=== PATIENT | male | born 1940 | race Caucasian/White ===

== ENCOUNTER 2018-06-22 15:05 | Inpatient (IN) | payer MEDICARE ==
[~2018-06-22] VITALS: Ht 177.8 cm; Wt 59.1 kg
[2018-06-22] MEDS ORDERED: IOVERSOL 350 MG/ML 100 ML VIAL ONE (15:13)
[2018-06-22] MEDS ORDERED: SODIUM CHLORIDE 0.9% 100 ML ONE (15:13)
[2018-06-22 15:33] LABS: BASOPHILS % (AUTO) 0.5 % (0.0-2.0); EOSINOPHILS % (AUTO) 1.4 % (1.0-6.0); HEMATOCRIT 41.3 % (41-53); LYMPHOCYTES # (AUTO) 0.8 K/uL (1.0-4.8); LYMPHOCYTES % (AUTO) 8.6 % (22.0-44.0); MEAN CORPUSCULAR HEMOGLOBIN 30.9 pg (26.0-34.0); MEAN CORPUSCULAR VOLUME 91 fL (80-100); MONOCYTES # (AUTO) 0.9 K/uL (0.1-1.0); MONOCYTES % (AUTO) 9.6 % (2.0-9.0); NEUTROPHILS # (AUTO) 7.1 K/uL (1.8-7.7); NEUTROPHILS % (AUTO) 79.9 % (40.0-70.0); PLATELET COUNT (AUTO) 171 K/uL (150-450); RED BLOOD CELL COUNT(AUTO) 4.55 MIL/uL (4.50-5.90); RED CELL DISTRIBUTION WIDTH 12.9 % (11.5-14.5)
[2018-06-22 15:42] LABS: ANION GAP 7 mmol/L (8-16); CALCIUM, TOTAL 8.8 mg/dL (8.8-10.5); CARBON DIOXIDE 28 mmol/L (22-29); CHLORIDE 106 mmol/L (98-107); CREATININE 0.77 mg/dL (0.60-1.30); GLUCOSE,RANDOM 98 mg/dL (70-110); SODIUM SERUM 141 mmol/L (136-145); UREA NITROGEN, BLOOD 15 mg/dL (7-18)
[2018-06-22 15:43] LABS: GLOMERULAR FILTR. RATE CALC > 60 mL/min (>60)
[2018-06-22 15:45] LABS: PROTHROMBIN TIME 10.5 SEC (9.4-11.6)
[2018-06-22] MEDS ORDERED: ASPIRIN 325 MG TABLET PO ONE (15:45)
[2018-06-22 15:48] LABS: ALANINE AMINOTRANSFERASE 7 U/L (12-78); ALBUMIN 2.7 g/dL (3.4-5.0); ALKALINE PHOSPHATASE 107 U/L (46-116); ASPARTATE AMINOTRANSFERASE 13 U/L (15-37); BILIRUBIN,TOTAL 0.5 mg/dL (0.1-1.0); CREATINE KINASE, TOTAL 53 U/L (39-308); TOTAL PROTEIN, SERUM 6.7 g/dL (6.4-8.2)
[2018-06-22] MEDS ORDERED: ASPIRIN 300 MG RECTAL SUPPOSITORY PR ONE (16:00)
[2018-06-22] MEDS ORDERED: LORazepam 2 MG/ML VIAL IVP ONE (16:30)
[2018-06-22] MEDS ORDERED: ONDANSETRON HCL 4 MG/2 ML VIAL IVP PRN ×2 (17:00→17:15)
[2018-06-22] MEDS ORDERED: 0.9% SODIUM CHLORIDE 10 ML SYRINGE IVP PRN (17:00)
[2018-06-22] MEDS ORDERED: ACETAMINOPHEN 325 MG TABLET PO PRN ×2 (17:00→17:15)
[2018-06-22] MEDS ORDERED: MORPHINE SULFATE 2 MG/ML SYRINGE IVP PRN (17:15)
[2018-06-22] MEDS ORDERED: MAGNESIUM HYDROXIDE SUSPENSION 30 ML UDCUP PO PRN (17:15)
[2018-06-22] MEDS ORDERED: ZOLPIDEM TARTRATE 5 MG TABLET PO PRN (17:15)
[2018-06-22] MEDS ORDERED: HYDROCODONE/ACETAMINOPHEN 5-325 MG TABLET PO PRN (17:15)
[2018-06-22] MEDS ORDERED: ASPIRIN 81 MG CHEWABLE TABLET PO ONE (17:15)
[2018-06-22] MEDS ORDERED: BISACODYL 10 MG RECTAL RECTAL SUPPOSITORY PR PRN (17:15)
[2018-06-22] MEDS ORDERED: SODIUM CHLORIDE 0.9% 500 ML IV ONE (17:15)
[2018-06-22] MEDS ORDERED: ESOM20CA60 PO (17:23)
[2018-06-22 18:06] LABS: APPEARANCE,URINE TURBID (CLEAR); GLUCOSE, URINE (UA) NEGATIVE (NEGATIVE); KETONES,URINE 15 mg/dL (NEGATIVE); LEUKOCYTE ESTERASE ,URINE MODERATE (NEGATIVE); NITRATE,URINE POSITIVE (NEGATIVE); OCCULT BLOOD,URINE LARGE (NEGATIVE); PROTEIN,URINE SEE CONFIRM (NEGATIVE)
[2018-06-22 18:14] LABS: BILIRUBIN,URINE PRELIM. POSITIVE (NEGATIVE)
[2018-06-22 18:16] LABS: SULFOSALICYLIC ACID,URINE 4+ (Negative)
[2018-06-22 18:17] LABS: RBC,URINE Full Field /HPF (0-2)
[2018-06-22 18:18] LABS: BACTERIA,URINE Moderate /HPF (None Seen); SQUAMOUS EPITHELIAL CELL,UR Few /LPF (None Seen)
[2018-06-22] MEDS ORDERED: CefTRIAXone SODIUM 1 GM in DEXTROSE 5%-WATER 10 ML IV ONE (18:45)
[2018-06-22 20:45] VITALS: BP 138/70
[2018-06-22] MEDS: ATORVASTATIN CALCIUM 20 MG TABLET PO SCH (21:00)
[2018-06-22] MEDS: DOCUSATE SODIUM 100 MG CAPSULE PO SCH (21:00)
[2018-06-23] VITALS: BP 91/55
[2018-06-23] MEDS ORDERED: HEPARIN SODIUM,PORCINE 5,000 UNITS/ML VIAL SQ SCH
[2018-06-23 03:31] LABS: AMPHET/METH SCREEN,URINE NEGATIVE (NEGATIVE); BARBITURATE SCREEN, URINE NEGATIVE (NEGATIVE); BENZODIAZEPINES SCREEN,URINE POSITIVE (NEGATIVE); CANNABINOID SCREEN,URINE POSITIVE (NEGATIVE); COCAINE SCREEN,URINE NEGATIVE (NEGATIVE); METHADONE SCREEN, URINE NEGATIVE (NEGATIVE); OPIATE SCREEN,URINE NEGATIVE (NEGATIVE)
[2018-06-23 03:44] LABS: PHENCYCLIDINE SCREEN,URINE NEGATIVE (NEGATIVE)
[2018-06-23 04:00] VITALS: BP 94/46
[2018-06-23 05:32] LABS: CHOL/HDL RATIO 3.9 (4.2-7.3); CHOLESTEROL 154 mg/dL (131-200); HDL CHOLESTEROL 40 mg/dL (40-60); LDL CHOL (CALC.) 98 mg/dL (0-130); THYROID STIMULATING HORMONE 1.57 uIU/mL (0.36-3.74); TRIGLYCERIDES 78 mg/dL (15-150)
[2018-06-23 07:56] LABS: BASOPHILS % (AUTO) 0.2 % (0.0-2.0); EOSINOPHILS % (AUTO) 0.8 % (1.0-6.0); HEMATOCRIT 40.7 % (41-53); HEMOGLOBIN 13.3 g/dL (13.5-17.5); LYMPHOCYTES # (AUTO) 0.7 K/uL (1.0-4.8); LYMPHOCYTES % (AUTO) 8.2 % (22.0-44.0); MEAN CORPUSCULAR HEMOGLOBIN 30.6 pg (26.0-34.0); MEAN CORPUSCULAR HGB CONC 32.8 G/dL (31.0-37.0); MEAN CORPUSCULAR VOLUME 93 fL (80-100); MONOCYTES # (AUTO) 0.8 K/uL (0.1-1.0); MONOCYTES % (AUTO) 9.6 % (2.0-9.0); NEUTROPHILS # (AUTO) 6.5 K/uL (1.8-7.7); NEUTROPHILS % (AUTO) 81.2 % (40.0-70.0); PLATELET COUNT (AUTO) 175 K/uL (150-450); RED BLOOD CELL COUNT(AUTO) 4.37 MIL/uL (4.50-5.90); RED CELL DISTRIBUTION WIDTH 12.8 % (11.5-14.5)
[2018-06-23 08:00] VITALS: BP 112/59
[2018-06-23 08:04] LABS: ANION GAP 14 mmol/L (8-16); CALCIUM, TOTAL 8.7 mg/dL (8.8-10.5); CARBON DIOXIDE 23 mmol/L (22-29); CHLORIDE 106 mmol/L (98-107); CREATININE 0.76 mg/dL (0.60-1.30); GLOMERULAR FILTR. RATE CALC > 60 mL/min (>60); GLUCOSE,RANDOM 78 mg/dL (70-110); POTASSIUM 3.9 mmol/L (3.5-5.1); SODIUM SERUM 143 mmol/L (136-145); UREA NITROGEN, BLOOD 12 mg/dL (7-18)
[2018-06-23] MEDS: PANTOPRAZOLE SODIUM 40 MG DR TABLET PO SCH (08:45)
[2018-06-23] MEDS: DOCUSATE SODIUM 100 MG CAPSULE PO SCH ×2 (08:46→20:17)
[2018-06-23 10:22] LABS: FOLATE SERUM 6.7 ng/mL (5.4-)
[2018-06-23 12:00] VITALS: BP 108/64
[2018-06-23 16:00] VITALS: BP 135/64
[2018-06-23] MEDS: CefTRIAXone SODIUM 1 GM in DEXTROSE 5%-WATER 10 ML IV SCH (18:29)
[2018-06-23 20:00] VITALS: BP 112/68
[2018-06-23] MEDS: ATORVASTATIN CALCIUM 20 MG TABLET PO SCH (20:17)
[2018-06-24] VITALS (7 sets, daily range): BP systolic 99–135; BP diastolic 54–78
[2018-06-24 04:44] LABS: BASOPHILS % (AUTO) 0.5 % (0.0-2.0); EOSINOPHILS % (AUTO) 2.9 % (1.0-6.0); HEMATOCRIT 38.5 % (41-53); LYMPHOCYTES % (AUTO) 12.5 % (22.0-44.0); MEAN CORPUSCULAR HEMOGLOBIN 30.7 pg (26.0-34.0); MEAN CORPUSCULAR HGB CONC 33.7 G/dL (31.0-37.0); MEAN CORPUSCULAR VOLUME 91 fL (80-100); MONOCYTES % (AUTO) 12.6 % (2.0-9.0); NEUTROPHILS # (AUTO) 5.5 K/uL (1.8-7.7); NEUTROPHILS % (AUTO) 71.5 % (40.0-70.0); PLATELET COUNT (AUTO) 164 K/uL (150-450); RED BLOOD CELL COUNT(AUTO) 4.22 MIL/uL (4.50-5.90); RED CELL DISTRIBUTION WIDTH 12.8 % (11.5-14.5)
[2018-06-24 04:53] LABS: ANION GAP 3 mmol/L (8-16); CALCIUM, TOTAL 8.4 mg/dL (8.8-10.5); CARBON DIOXIDE 33 mmol/L (22-29); CHLORIDE 105 mmol/L (98-107); CREATININE 0.72 mg/dL (0.60-1.30); GLOMERULAR FILTR. RATE CALC > 60 mL/min (>60); GLUCOSE,RANDOM 98 mg/dL (70-110); POTASSIUM 3.7 mmol/L (3.5-5.1); SODIUM SERUM 141 mmol/L (136-145); UREA NITROGEN, BLOOD 16 mg/dL (7-18)
[2018-06-24] MEDS: PANTOPRAZOLE SODIUM 40 MG DR TABLET PO SCH (08:13)
[2018-06-24] MEDS: DOCUSATE SODIUM 100 MG CAPSULE PO SCH ×2 (08:13→20:45)
[2018-06-24] MEDS: CefTRIAXone SODIUM 1 GM in DEXTROSE 5%-WATER 10 ML IV SCH (17:31)
[2018-06-24] MEDS: ATORVASTATIN CALCIUM 20 MG TABLET PO SCH (20:45)
[2018-06-25 00:13] VITALS: BP 104/51
[2018-06-25 03:53] VITALS: BP 113/71
[2018-06-25 07:57] VITALS: BP 126/72
[2018-06-25] MEDS: DOCUSATE SODIUM 100 MG CAPSULE PO SCH ×2 (09:50→20:37)
[2018-06-25] MEDS: PANTOPRAZOLE SODIUM 40 MG DR TABLET PO SCH (09:50)
[2018-06-25 11:56] VITALS: BP 124/87
[2018-06-25 15:19] VITALS: BP 120/68
[2018-06-25] MEDS: CefTRIAXone SODIUM 1 GM in DEXTROSE 5%-WATER 10 ML IV SCH (18:05)
[2018-06-25 19:43] VITALS: BP 129/65
[2018-06-25] MEDS: ATORVASTATIN CALCIUM 20 MG TABLET PO SCH (20:37)
[2018-06-26 00:09] VITALS: BP 115/63
[2018-06-26 04:50] VITALS: BP 124/72
[2018-06-26 07:15] VITALS: BP 121/78
[2018-06-26] MEDS: PANTOPRAZOLE SODIUM 40 MG DR TABLET PO SCH (08:54)
[2018-06-26] MEDS: DOCUSATE SODIUM 100 MG CAPSULE PO SCH ×2 (08:54→20:18)
[2018-06-26 11:39] VITALS: BP 129/75
[2018-06-26 15:28] VITALS: BP 123/76
[2018-06-26] MEDS: CefTRIAXone SODIUM 1 GM in DEXTROSE 5%-WATER 10 ML IV SCH (17:50)
[2018-06-26 20:03] VITALS: BP 108/71
[2018-06-26] MEDS: ATORVASTATIN CALCIUM 20 MG TABLET PO SCH (20:19)
[2018-06-27 00:06] VITALS: BP 111/64
[2018-06-27 05:34] VITALS: BP 117/78
[2018-06-27 07:27] VITALS: BP 121/73
[2018-06-27] MEDS ORDERED: SODIUM CHLORIDE 0.9% 500 ML IV ONE (07:48)
[2018-06-27] MEDS: PANTOPRAZOLE SODIUM 40 MG DR TABLET PO SCH (08:24)
[2018-06-27] MEDS: DOCUSATE SODIUM 100 MG CAPSULE PO SCH (08:31)
[2018-06-27] MEDS ORDERED: SODIUM CHLORIDE 0.9% 1,000 ML IV ONE (09:00)
[2018-06-27] MEDS ORDERED: ESCITALOPRAM OXALATE 10 MG TABLET PO SCH (09:00)
[2018-06-27 11:33] VITALS: BP 121/66
[2018-06-27] MEDS ORDERED: CIPR-278 PO (12:37)
[2018-06-27] MEDS ORDERED: ESCI10TA PO (12:38)
== END 2018-06-27 15:30 | disposition home or self-care (01) | DRG 91 ==
LOC: EMS 15:06 → ICU 18:49 → 5S 06-24 11:26
PROVIDERS: ADMIT Internal Medicine; ATTEND Internal Medicine
DX: G92 Toxic encephalopathy (principal); E43 Unspecified severe protein-calorie malnutrition; N39.0 Urinary tract infection, site not specified; Z68.1 Body mass index [BMI] 19.9 or less, adult; F12.90 Cannabis use, unspecified, uncomplicated; F32.9 Major depressive disorder, single episode, unspecified; T42.72XA Poisoning by unspecified antiepileptic and sedative-hypnotic drugs, intentional self-harm, initial encounter; Y92.89 Other specified places as the place of occurrence of the external cause; Z87.11 Personal history of peptic ulcer disease; Z85.118 Personal history of other malignant neoplasm of bronchus and lung
CPT/HCPCS: 51702; 70496; 72170; 80307; 82607; 82746; 84443; 87081; 87086; 92610; 93005; 96361; 96374; 97162; 99291; J0696; J7030; J7040; J7050; J7060

== ENCOUNTER 2019-01-04 13:39 | Inpatient (IN) | payer MEDICARE, MEDICAID ==
[~2019-01-04] VITALS: Ht 177.8 cm; Wt 58.8 kg
[~2019-01-04 13:39] MED LIST: CIPR-278 PO; ESCI10TA PO; ESOM20CA60 PO
[2019-01-04] MEDS ORDERED: AUD NEB (14:09)
[2019-01-04] MEDS ORDERED: AZITHROMYCIN 500 MG/NS 250 ML IV ONE (16:00)
[2019-01-04] MEDS ORDERED: CefTRIAXone 1 GM/DEXTROSE 50 ML IV ONE (16:00)
[2019-01-04 16:13] LABS: BASOPHILS % (AUTO) 0.5 % (0.0-2.0); EOSINOPHILS % (AUTO) 1.2 % (1.0-6.0); HEMATOCRIT 43.5 % (41-53); HEMOGLOBIN 14.3 g/dL (13.5-17.5); LYMPHOCYTES # (AUTO) 0.8 K/uL (1.0-4.8); LYMPHOCYTES % (AUTO) 9.5 % (22.0-44.0); MEAN CORPUSCULAR HEMOGLOBIN 30.8 pg (26.0-34.0); MEAN CORPUSCULAR HGB CONC 32.9 G/dL (31.0-37.0); MEAN CORPUSCULAR VOLUME 94 fL (80-100); MONOCYTES # (AUTO) 0.7 K/uL (0.1-1.0); NEUTROPHILS # (AUTO) 6.6 K/uL (1.8-7.7); NEUTROPHILS % (AUTO) 80.8 % (40.0-70.0); PLATELET COUNT (AUTO) 220 K/uL (150-450); RED BLOOD CELL COUNT(AUTO) 4.66 MIL/uL (4.50-5.90); RED CELL DISTRIBUTION WIDTH 13.2 % (11.5-14.5)
[2019-01-04 16:19] LABS: ANION GAP 6 mmol/L (8-16); CALCIUM, TOTAL 9.5 mg/dL (8.8-10.5); CARBON DIOXIDE 32 mmol/L (22-29); CHLORIDE 102 mmol/L (98-107); CREATININE 0.78 mg/dL (0.60-1.30); GLUCOSE,RANDOM 88 mg/dL (70-110); POTASSIUM 5.3 mmol/L (3.5-5.1); SODIUM SERUM 140 mmol/L (136-145); UREA NITROGEN, BLOOD 17 mg/dL (7-18)
[2019-01-04 16:20] LABS: GLOMERULAR FILTR. RATE CALC > 60 mL/min (>60)
[2019-01-04 16:27] LABS: ALANINE AMINOTRANSFERASE 15 U/L (12-78); ALBUMIN 3.6 g/dL (3.4-5.0); ALKALINE PHOSPHATASE 114 U/L (46-116); ASPARTATE AMINOTRANSFERASE 25 U/L (15-37); BILIRUBIN,TOTAL 0.4 mg/dL (0.1-1.0); TOTAL PROTEIN, SERUM 7.3 g/dL (6.4-8.2)
[2019-01-04 16:37] LABS: APPEARANCE,URINE CLEAR (CLEAR); BILIRUBIN,URINE NEGATIVE (NEGATIVE); GLUCOSE, URINE (UA) NEGATIVE (NEGATIVE); KETONES,URINE TRACE mg/dL (NEGATIVE); LEUKOCYTE ESTERASE ,URINE NEGATIVE (NEGATIVE); NITRATE,URINE NEGATIVE (NEGATIVE); OCCULT BLOOD,URINE NEGATIVE (NEGATIVE); PH,URINE 5.5 (5.0-8.0); PROTEIN,URINE NEGATIVE (NEGATIVE); UROBILINOGEN,URINE 0.2 mg/dL (<=1.0)
[2019-01-04 16:42] LABS: B-TYPE NATRIURETIC PEPTIDE 45 pg/mL (0-100)
[2019-01-04] MEDS ORDERED: SODIUM CHLORIDE 0.9% 100 ML ONE (18:30)
[2019-01-04] MEDS ORDERED: ACETAMINOPHEN 325 MG TABLET PO PRN ×2 (18:30→21:30)
[2019-01-04] MEDS ORDERED: IOVERSOL 320 MG/ML 100 ML VIAL ONE (18:30)
[2019-01-04] MEDS ORDERED: ONDANSETRON HCL 4 MG/2 ML VIAL IVP PRN ×2 (18:30→21:30)
[2019-01-04] MEDS ORDERED: 0.9% SODIUM CHLORIDE 10 ML SYRINGE IVP PRN (18:30)
[2019-01-04] MEDS ORDERED: IPRATROPIUM BROMIDE 0.5 MG/2.5 ML NEB SOLUTION NEB PRN (21:30)
[2019-01-04] MEDS ORDERED: ALBUTEROL SULFATE 2.5 MG/0.5 ML NEB SOLUTION NEB PRN (21:30)
[2019-01-04] MEDS ORDERED: MAGNESIUM HYDROXIDE SUSPENSION 30 ML UDCUP PO PRN (21:30)
[2019-01-04 21:46] VITALS: BP 137/78
[2019-01-04 23:51] VITALS: BP 133/74
[2019-01-04] MEDS: BENZONATATE 100 MG CAPSULE PO SCH (23:56)
[2019-01-05 05:05] VITALS: BP 118/71
[2019-01-05 07:10] VITALS: BP 142/73
[2019-01-05 07:24] LABS: HEMATOCRIT 39.8 % (41-53); RED BLOOD CELL COUNT(AUTO) 4.28 MIL/uL (4.50-5.90)
[2019-01-05 07:25] LABS: BASOPHILS % (AUTO) 0.3 % (0.0-2.0); EOSINOPHILS % (AUTO) 1.7 % (1.0-6.0); LYMPHOCYTES # (AUTO) 0.7 K/uL (1.0-4.8); MEAN CORPUSCULAR HEMOGLOBIN 32.7 pg (26.0-34.0); MEAN CORPUSCULAR HGB CONC 35.1 G/dL (31.0-37.0); MEAN CORPUSCULAR VOLUME 93 fL (80-100); MONOCYTES # (AUTO) 0.6 K/uL (0.1-1.0); MONOCYTES % (AUTO) 8.8 % (2.0-9.0); NEUTROPHILS # (AUTO) 4.9 K/uL (1.8-7.7); NEUTROPHILS % (AUTO) 78.2 % (40.0-70.0); PLATELET COUNT (AUTO) 193 K/uL (150-450); RED CELL DISTRIBUTION WIDTH 12.8 % (11.5-14.5)
[2019-01-05 07:49] LABS: ALANINE AMINOTRANSFERASE 12 U/L (12-78); ALKALINE PHOSPHATASE 94 U/L (46-116); ANION GAP 1 mmol/L (8-16); ASPARTATE AMINOTRANSFERASE 23 U/L (15-37); BILIRUBIN,TOTAL 0.6 mg/dL (0.1-1.0); CALCIUM, TOTAL 8.7 mg/dL (8.8-10.5); CARBON DIOXIDE 34 mmol/L (22-29); CHLORIDE 101 mmol/L (98-107); CREATININE 0.95 mg/dL (0.60-1.30); GLUCOSE,RANDOM 104 mg/dL (70-110); POTASSIUM 4.3 mmol/L (3.5-5.1); SODIUM SERUM 136 mmol/L (136-145); TOTAL PROTEIN, SERUM 6.5 g/dL (6.4-8.2); UREA NITROGEN, BLOOD 17 mg/dL (7-18)
[2019-01-05 07:51] LABS: GLOMERULAR FILTR. RATE CALC > 60 mL/min (>60)
[2019-01-05] MEDS: DOCUSATE SODIUM 100 MG CAPSULE PO SCH ×2 (08:33→19:57)
[2019-01-05] MEDS: FAMOTIDINE 20 MG TABLET PO SCH ×2 (08:33→19:57)
[2019-01-05] MEDS: BENZONATATE 100 MG CAPSULE PO SCH ×3 (08:33→22:45)
[2019-01-05 11:40] VITALS: BP 132/87
[2019-01-05 16:07] VITALS: BP 114/65
[2019-01-05 19:58] VITALS: BP 127/65
[2019-01-05] MEDS ORDERED: *CLINICAL-LEVOFLOXACIN IVPB DOSING CLINICAL ONE (21:30)
[2019-01-05] MEDS ORDERED: SODIUM CHLORIDE 0.9% 500 ML IV ONE (22:33)
[2019-01-05] MEDS: LEVOFLOXACIN 750 MG/D5% WATER 150 ML IV SCH (22:45)
[2019-01-05 22:54] VITALS: BP 109/68
[2019-01-06 05:27] VITALS: BP 119/69
[2019-01-06 07:58] VITALS: BP 124/68
[2019-01-06] MEDS: DOCUSATE SODIUM 100 MG CAPSULE PO SCH ×2 (08:18→20:44)
[2019-01-06] MEDS: FAMOTIDINE 20 MG TABLET PO SCH ×2 (08:18→20:44)
[2019-01-06] MEDS: BENZONATATE 100 MG CAPSULE PO SCH ×3 (08:18→23:46)
[2019-01-06 11:55] VITALS: BP 124/65
[2019-01-06] MEDS ORDERED: ZOLPIDEM TARTRATE 10 MG TABLET PO PRN (14:30)
[2019-01-06 15:38] VITALS: BP 104/65
[2019-01-06 20:21] VITALS: BP 122/57
[2019-01-06] MEDS: LEVOFLOXACIN 750 MG/D5% WATER 150 ML IV SCH (22:05)
[2019-01-06 23:38] VITALS: BP 113/62
[2019-01-07 04:54] VITALS: BP 123/66
[2019-01-07 06:28] LABS: BASOPHILS % (AUTO) 0.4 % (0.0-2.0); EOSINOPHILS % (AUTO) 4.7 % (1.0-6.0); HEMATOCRIT 44.9 % (41-53); LYMPHOCYTES # (AUTO) 0.9 K/uL (1.0-4.8); LYMPHOCYTES % (AUTO) 11.7 % (22.0-44.0); MEAN CORPUSCULAR HEMOGLOBIN 31.2 pg (26.0-34.0); MEAN CORPUSCULAR HGB CONC 33.4 G/dL (31.0-37.0); MEAN CORPUSCULAR VOLUME 94 fL (80-100); MONOCYTES # (AUTO) 0.7 K/uL (0.1-1.0); MONOCYTES % (AUTO) 9.6 % (2.0-9.0); NEUTROPHILS # (AUTO) 5.5 K/uL (1.8-7.7); NEUTROPHILS % (AUTO) 73.6 % (40.0-70.0); PLATELET COUNT (AUTO) 220 K/uL (150-450); RED CELL DISTRIBUTION WIDTH 13.1 % (11.5-14.5)
[2019-01-07 06:42] LABS: ANION GAP 3 mmol/L (8-16); CALCIUM, TOTAL 9.2 mg/dL (8.8-10.5); CARBON DIOXIDE 34 mmol/L (22-29); CHLORIDE 101 mmol/L (98-107); CREATININE 1.08 mg/dL (0.60-1.30); GLUCOSE,RANDOM 99 mg/dL (70-110); PHOSPHORUS 2.8 mg/dL (2.5-4.9); POTASSIUM 5.4 mmol/L (3.5-5.1); SODIUM SERUM 138 mmol/L (136-145); TOTAL PROTEIN, SERUM 7.2 g/dL (6.4-8.2); UREA NITROGEN, BLOOD 19 mg/dL (7-18)
[2019-01-07 06:47] LABS: GLOMERULAR FILTR. RATE CALC > 60 mL/min (>60)
[2019-01-07 07:00] LABS: LACTATE DEHYDROGENASE 161 U/L (85-227)
[2019-01-07 07:52] VITALS: BP 128/73
[2019-01-07] MEDS: BENZONATATE 100 MG CAPSULE PO SCH ×2 (08:00→17:30)
[2019-01-07] MEDS: DOCUSATE SODIUM 100 MG CAPSULE PO SCH ×2 (08:28→20:57)
[2019-01-07] MEDS: FAMOTIDINE 20 MG TABLET PO SCH ×2 (08:28→20:57)
[2019-01-07 11:53] VITALS: BP 120/68
[2019-01-07 15:35] VITALS: BP 118/65
[2019-01-07 20:15] VITALS: BP 108/60
[2019-01-07] MEDS: LEVOFLOXACIN 750 MG/D5% WATER 150 ML IV SCH (22:44)
[2019-01-08 00:10] VITALS: BP 118/57
[2019-01-08] MEDS: BENZONATATE 100 MG CAPSULE PO SCH ×3 (01:26→15:54)
[2019-01-08 04:36] VITALS: BP 105/62
[2019-01-08 07:50] VITALS: BP 118/72
[2019-01-08] MEDS: DOCUSATE SODIUM 100 MG CAPSULE PO SCH (09:26)
[2019-01-08] MEDS: FAMOTIDINE 20 MG TABLET PO SCH (09:27)
[2019-01-08 11:31] VITALS: BP 115/69
[2019-01-08 15:17] VITALS: BP 112/63
[2019-01-08] MEDS ORDERED: LEVO250 PO (16:55)
== END 2019-01-08 17:20 | disposition home or self-care (01) | DRG 193 ==
LOC: EMS 13:40 → 6N 18:18
PROVIDERS: ADMIT Internal Medicine; ATTEND Internal Medicine
DX: J18.9 Pneumonia, unspecified organism (principal); E43 Unspecified severe protein-calorie malnutrition; J90 Pleural effusion, not elsewhere classified; R64 Cachexia; J44.1 Chronic obstructive pulmonary disease with (acute) exacerbation; Z68.1 Body mass index [BMI] 19.9 or less, adult; J44.0 Chronic obstructive pulmonary disease with (acute) lower respiratory infection; F17.210 Nicotine dependence, cigarettes, uncomplicated; E87.5 Hyperkalemia; Z85.118 Personal history of other malignant neoplasm of bronchus and lung; Z86.11 Personal history of tuberculosis; Z90.2 Acquired absence of lung [part of]; Z88.6 Allergy status to analgesic agent; Z79.899 Other long term (current) drug therapy; Z71.6 Tobacco abuse counseling
CPT/HCPCS: 71260; 76604; 83615; 83735; 84100; 84155; 87015; 87040; 87206; 93005; 96365; G0378; J0456; J0696; J1956; J7040; J7050